=== PATIENT | female | born 1930 | race Caucasian/White ===

== ENCOUNTER 2018-04-20 08:10 | Inpatient (IN) ==
[2018-04-20] MEDS ORDERED: MORPHINE 4 MG/1 ML VIAL IV PRN (12:12)
[2018-04-20] MEDS ORDERED: ONDANSETRON 4 MG/2 ML VIAL IV PRN (12:12)
[2018-04-20] MEDS ORDERED: ACETAMINOPHEN 325 MG TABLET PO PRN (12:12)
[2018-04-20] MEDS ORDERED: CALCIUM CARBONATE CHEW 500 MG TABLET PO PRN (12:15)
[2018-04-20] MEDS: amLODIPine 10 MG TABLET PO SCH (13:04)
[2018-04-20] MEDS: SODIUM CHLORIDE 0.45% 1,000 ML IV SCH ×2 (13:07→21:21)
[2018-04-20] MEDS: PANTOPRAZOLE 40 MG VIAL IV SCH (13:07)
[2018-04-20 13:54] LABS: Troponin I 0.253 NG/ML (0.00-0.045)
[2018-04-20 14:07] LABS: Risk Ratio 5.11; VLDL CHOLESTEROL 48.8 MG/DL
[2018-04-20] MEDS: ENOXAPARIN 60 MG/0.6 ML SYRINGE SUBCUT SCH (16:22)
[2018-04-20 16:24] LABS: Troponin I 0.187 NG/ML (0.00-0.045)
[2018-04-20] MEDS: NITROGLYCERIN 2% OINT 1 INCH/GM PACK TOP SCH (17:47)
[2018-04-20 19:45] LABS: Troponin I 0.159 NG/ML (0.00-0.045)
[2018-04-20] MEDS ORDERED: ALUM/MAG/SIMETH/LIDO VISC 1:1 30 ML BOTTLE PO ONE (20:36)
[2018-04-20] MEDS ORDERED: PANTOPRAZOLE 40 MG VIAL IV ONE (20:37)
[2018-04-20] MEDS ORDERED: ROSUVASTATIN 20 MG TABLET PO SCH (21:00)
[2018-04-20] MEDS ORDERED: ENOXAPARIN 40 MG/0.4 ML SYRINGE SUBCUT SCH (21:00)
[2018-04-20] MEDS ORDERED: ATENOLOL 25 MG TABLET PO SCH (21:00)
[2018-04-21] MEDS: NITROGLYCERIN 2% OINT 1 INCH/GM PACK TOP SCH ×3 (04:20→13:09)
[2018-04-21] MEDS: ENOXAPARIN 60 MG/0.6 ML SYRINGE SUBCUT SCH (04:23)
[2018-04-21] MEDS: SODIUM CHLORIDE 0.45% 1,000 ML IV SCH ×2 (05:52→13:10)
[2018-04-21 06:06] LABS: Basophils # 0.1 10*3/uL (0.0-0.2); Basophils % 1.4 % (0.0-0.8); Eosinophils # 0.4 10*3/uL (0.0-0.87); Eosinophils % 3.9 % (0.00-10.9); Hematocrit 41.3 VOL% (35.7-47.0); Immature Granulocytes % 0.4 %; Immature Granulocytes Absolute 0.04 #; Lymphocytes # 1.7 10*3/uL (1.4-4.0); Lymphocytes % 17.1 % (21.3-54.2); Mean Corpuscular HGB Conc 33.9 GM/DL (32-36); Mean Corpuscular Hemoglobin 31 PG (27-34); Mean Platelet Volume 10.7 FL (9.6-12.0); Monocytes # 0.8 10*3/uL (0.11-0.8); Monocytes % 7.8 % (1.7-12.7); Neutrophils # 6.8 10*3/uL (1.4-7.4); Neutrophils % 69.4 % (38.7-73.9); Platelet Count 308 T/CUMM (130-400); Red Blood Count 4.49 MC/CUMM (3.8-5.5); Red Cell Distribution Width 13.3 % (9.3-17.3); White Blood Count 9.8 T/CUMM (4-12)
[2018-04-21] MEDS ORDERED: LEVOTHYROXINE 50 MCG TABLET PO SCH (06:30)
[2018-04-21 06:33] LABS: Calcium 8.9 MG/DL (8.5-10.1); Osmolality,Calculated 281.3 MOS/KG (273-304); Potassium 3.8 MMOL/L (3.5-5.1)
[2018-04-21] MEDS ORDERED: SERTRALINE 50 MG TABLET PO SCH (09:00)
[2018-04-21] MEDS: PANTOPRAZOLE 40 MG VIAL IV SCH (09:02)
[2018-04-21] MEDS: amLODIPine 10 MG TABLET PO SCH (09:03)
[2018-04-21] MEDS: ASPIRIN 325 MG TABLET PO SCH ×2 (09:03→09:07)
[2018-04-21 12:00] VITALS: BP 136/63
[2018-04-21] MEDS ORDERED: INFLUENZA VIRUS VACCINE 0.5 ML SYRINGE IM ONE (13:17)
== END 2018-04-21 13:59 | disposition home or self-care (01) | DRG 392 ==
LOC: N.CC 10:29 → SUATTDRO 10:29 → N.TELES 17:10
PROVIDERS: ADMIT Internal Medicine

== ENCOUNTER 2020-09-16 09:17 | Inpatient (IN) ==
[2020-09-16] MEDS ORDERED: DILTIAZEM 50 MG/10 ML VIAL IV ONE (09:34)
[2020-09-16] MEDS ORDERED: DILTIAZEM 50 MG/10 ML VIAL IV STA (09:40)
[2020-09-16 09:45] LABS: Basophils # 0.2 10*3/uL (0.0-0.2); Basophils % 1.2 % (0.0-0.8); Eosinophils # 0.5 10*3/uL (0.0-0.87); Hematocrit 41.2 VOL% (35.7-47.0); Hemoglobin 13.6 GM/DL (12.0-16.0); Immature Granulocytes % 0.6 %; Immature Granulocytes Absolute 0.09 #; Lymphocytes # 3.9 10*3/uL (1.4-4.0); Lymphocytes % 24.3 % (21.3-54.2); Mean Corpuscular Volume 93.4 FL (87-102); Mean Platelet Volume 10.9 FL (9.6-12.0); Monocytes % 6.1 % (1.7-12.7); Neutrophils % 64.8 % (38.7-73.9); Platelet Count 148 T/CUMM (130-400); Red Blood Count 4.41 MC/CUMM (3.8-5.5); Red Cell Distribution Width 13.8 % (9.3-17.3); White Blood Count 15.9 T/CUMM (4-12)
[2020-09-16 09:55] LABS: PT Patient Result 10.5 SECS (9.8-11.9); Partial Thromboplastin Time 21.6 SECS (23.9-33.8)
[2020-09-16 10:09] LABS: Anisocytosis Slight; Platelet Estimate Adequate
[2020-09-16 10:23] LABS: Albumin 3.7 G/DL (3.4-5.0); Bilirubin,Total 0.7 MG/DL (0.2-1.0); Calcium 9.3 MG/DL (8.5-10.1); Osmolality,Calculated 276.7 MOS/KG (273-304); Potassium 3.7 MMOL/L (3.5-5.1); Total Protein 7.2 G/DL (6.4-8.3)
[2020-09-16] MEDS ORDERED: ONDANSETRON 4 MG/2 ML VIAL IV PRN (11:38)
[2020-09-16] MEDS ORDERED: hydrALAZINE 20 MG/1 ML VIAL IV PRN (11:38)
[2020-09-16] MEDS ORDERED: DOCUSATE SODIUM 100 MG CAPSULE PO PRN (11:38)
[2020-09-16] MEDS ORDERED: GLUCAGON 1 MG VIAL IM PRN (11:38)
[2020-09-16] MEDS ORDERED: DEXTROSE 50% 25 GM/50 ML VIAL IV PRN (11:38)
[2020-09-16] MEDS ORDERED: ACETAMINOPHEN 325 MG TABLET PO PRN (11:38)
[2020-09-16] MEDS ORDERED: ENOXAPARIN 40 MG/0.4 ML SYRINGE SUBCUT SCH (12:00)
[2020-09-16 13:36] LABS: Bilirubin,Urine Negative (Negative); Blood, Urine Negative (Negative); Glucose,Urine (UA) Negative (Negative); Ketones,Urine Negative (Negative); Mucus,Urine Occasional /LPF (Occasional); Nitrite,Urine Negative (Negative); Protein,Urine Negative; RBC,Urine 5 /HPF (0-4); Urine Appearance CLEAR (Clear); Urine Color Straw (Yellow); Urine Specific Gravity 1.006 (1.001-1.035); Urine Urobilinogen < 2.0 EU/DL (0.2-1.0)
[2020-09-16] MEDS: APIXABAN 5 MG TABLET PO SCH ×2 (14:47→21:40)
[2020-09-16] MEDS: atenoloL 25 MG TABLET PO SCH (14:48)
[2020-09-16] MEDS: ROSUVASTATIN 20 MG TABLET PO SCH (21:40)
[2020-09-16] MEDS: ZALEPLON 5 MG CAPSULE PO PRN (23:48)
[2020-09-17] MEDS ORDERED: NITROGLYCERIN SL 0.4 MG TABLET SL PRN (03:30)
[2020-09-17 05:55] LABS: Basophils # 0.2 10*3/uL (0.0-0.2); Basophils % 1.3 % (0.0-0.8); Eosinophils # 0.4 10*3/uL (0.0-0.87); Eosinophils % 3.2 % (0.00-10.9); Hematocrit 39.1 VOL% (35.7-47.0); Hemoglobin 13.5 GM/DL (12.0-16.0); Immature Granulocytes % 0.5 %; Immature Granulocytes Absolute 0.07 #; Lymphocytes # 4.3 10*3/uL (1.4-4.0); Lymphocytes % 33.5 % (21.3-54.2); Mean Corpuscular HGB Conc 34.5 GM/DL (32-36); Mean Corpuscular Volume 89.9 FL (87-102); Mean Platelet Volume 10.7 FL (9.6-12.0); Monocytes % 7.3 % (1.7-12.7); Neutrophils % 54.2 % (38.7-73.9); Platelet Count 373 T/CUMM (130-400); Red Blood Count 4.35 MC/CUMM (3.8-5.5); Red Cell Distribution Width 13.6 % (9.3-17.3); White Blood Count 12.8 T/CUMM (4-12)
[2020-09-17] MEDS: LEVOTHYROXINE 50 MCG TABLET PO SCH (06:16)
[2020-09-17 06:18] LABS: Calcium 9.4 MG/DL (8.5-10.1); Osmolality,Calculated 278.4 MOS/KG (273-304); Potassium 3.1 MMOL/L (3.5-5.1); Risk Ratio 3.89
[2020-09-17] MEDS ORDERED: ALUM/MAG/SIMETH/LIDO VISC 1:1 30 ML BOTTLE PO ONE (06:23)
[2020-09-17 06:24] LABS: Eosinophils 5 % (0-10); Hypochromasia 1+; Lymphocytes 34 % (20-55); Microcytosis 1+; Platelet Estimate Adequate; Segmented Neutrophils 56 % (50-85); Total Cells Counted 100
[2020-09-17] MEDS ORDERED: POTASSIUM CHLORIDE 20 MEQ PACK PO ONE (07:26)
[2020-09-17] MEDS ORDERED: POTASSIUM CHLORIDE 20 MEQ TABLET PO ONE (08:19)
[2020-09-17] MEDS ORDERED: ASPIRIN EC 81 MG TABLET PO SCH (09:00)
[2020-09-17] MEDS ORDERED: PANTOPRAZOLE 40 MG TABLET PO SCH (09:00)
[2020-09-17] MEDS: atenoloL 25 MG TABLET PO SCH (09:10)
[2020-09-17] MEDS: ASPIRIN CHEW 81 MG TABLET PO SCH (09:10)
[2020-09-17] MEDS: PANTOPRAZOLE 40 MG TABLET PO SCH (09:10)
[2020-09-17] MEDS: OLMESARTAN 5 MG TABLET PO SCH (09:10)
[2020-09-17] MEDS: APIXABAN 5 MG TABLET PO SCH ×2 (09:10→21:26)
[2020-09-17] MEDS: amLODIPine 10 MG TABLET PO SCH (09:10)
[2020-09-17] MEDS: ISOSORBIDE MONONITRATE 30 MG TABLET PO SCH (10:07)
[2020-09-17] MEDS: SOTALOL 80 MG TABLET PO SCH ×2 (10:07→21:25)
[2020-09-17 10:42] LABS: Troponin I < 0.015 NG/ML (0.00-0.045)
[2020-09-17] MEDS ORDERED: METOPROLOL TARTRATE 50 MG TABLET PO SCH (21:00)
[2020-09-17] MEDS: ROSUVASTATIN 20 MG TABLET PO SCH (21:26)
[2020-09-17] MEDS: ZALEPLON 5 MG CAPSULE PO PRN (21:33)
[2020-09-18] MEDS: LEVOTHYROXINE 50 MCG TABLET PO SCH (06:04)
[2020-09-18 06:57] LABS: Basophils # 0.2 10*3/uL (0.0-0.2); Basophils % 1.6 % (0.0-0.8); Eosinophils # 0.7 10*3/uL (0.0-0.87); Eosinophils % 5.9 % (0.00-10.9); Hematocrit 39.3 VOL% (35.7-47.0); Hemoglobin 13.1 GM/DL (12.0-16.0); Immature Granulocytes % 0.6 %; Immature Granulocytes Absolute 0.07 #; Lymphocytes # 4.7 10*3/uL (1.4-4.0); Lymphocytes % 37.8 % (21.3-54.2); Mean Corpuscular HGB Conc 33.3 GM/DL (32-36); Mean Corpuscular Volume 92.3 FL (87-102); Mean Platelet Volume 10.6 FL (9.6-12.0); Monocytes % 7.2 % (1.7-12.7); Neutrophils % 46.9 % (38.7-73.9); Platelet Count 327 T/CUMM (130-400); Red Blood Count 4.26 MC/CUMM (3.8-5.5); Red Cell Distribution Width 13.8 % (9.3-17.3); White Blood Count 12.5 T/CUMM (4-12)
[2020-09-18 07:15] LABS: Calcium 8.8 MG/DL (8.5-10.1); Osmolality,Calculated 277.5 MOS/KG (273-304); Potassium 3.9 MMOL/L (3.5-5.1)
[2020-09-18 07:26] LABS: Hypochromasia 1+; Microcytosis 1+; Platelet Estimate Normal
[2020-09-18] MEDS: APIXABAN 5 MG TABLET PO SCH (09:06)
[2020-09-18] MEDS: PANTOPRAZOLE 40 MG TABLET PO SCH (09:06)
[2020-09-18] MEDS: OLMESARTAN 5 MG TABLET PO SCH (09:06)
[2020-09-18] MEDS: amLODIPine 10 MG TABLET PO SCH (09:06)
[2020-09-18] MEDS: ASPIRIN CHEW 81 MG TABLET PO SCH (09:07)
[2020-09-18] MEDS: ISOSORBIDE MONONITRATE 30 MG TABLET PO SCH (09:07)
[2020-09-18] MEDS: SOTALOL 80 MG TABLET PO SCH (09:56)
[2020-09-18 16:31] VITALS: BP 142/66
== END 2020-09-18 18:02 | disposition home or self-care (01) | DRG 310 ==
LOC: EDUNIT# → EDBD → N.ED 09:17 → N.EDINP 09:17 → SUATTDRO 11:38 → N.TELEN 13:57 → N.EDINP 14:01
PROVIDERS: ADMIT Internal Medicine; ATTEND Emergency Medicine